=== PATIENT | male | born 1980 | race American Indian/Alaskan Native ===

== ENCOUNTER 2022-04-21 15:39 | Emergency (ER) | payer SELFPAY ==
[2022-04-21 16:24] VITALS: BP 113/66
[2022-04-21] MEDS ORDERED: SULFAMETHOXAZOLE/TRIMETHOPRIM 800/160MG DS TAB PO ONE (16:45)
--- NOTE | 2022-04-21 16:46 | Emergency Department Report ---
Abscess Boil HPI - HPI Chief Complaint: Eye Problems Stated Complaint: OPEN BUMP ON HEAD ABOVE EYE Time Seen by Provider: 04/21/22 16:43 Duration: 5 Days Location: Other Severity: Mild History: Yes Purulent Drainage, No Fever, No Pain, No Numbness, No Foreign Body, No Previous History, No Insect Bite HPI: 42 YO COMES IN WITH BOIL OVER LEFT EYE. CURRENTLY DRAINING PURULENT DRAINAGE. NO TRAUMA. NO HX OF SAME. NO FEVER OR CHILLS. Home Medications: Previous Rx's Medication Instructions Recorded Last Taken Type Sulfamethoxazole/Trimethoprim 1 each PO BID #10 tablet 04/21/22 Unknown Rx [Bactrim DS TAB] Allergies/Adverse Reactions: Allergies Allergy/AdvReac Type Severity Reaction Status Date / Time amoxicillin Allergy Unknown Verified 07/11/17 12:31 ED Review of Systems ROS: Stated complaint: OPEN BUMP ON HEAD ABOVE EYE Other details as noted in HPI Comment: All other systems reviewed and negative ED Past Medical Hx - Past Medical History Previous Medical History?: Yes Additional medical history: Sinusitis - Surgical History Past Surgical History?: Yes Additional Surgical History: sinus surgery - Social History Smoking Status: Never Smoker Substance Use Type: Alcohol - Medications Home Medications: Home Medications Medication Instructions Recorded Confirmed Last Taken Type Sulfamethoxazole/Trimethoprim 1 each PO BID #10 tablet 04/21/22 Unknown Rx [Bactrim DS TAB] ED Abscess Boil Physical Exam - Exam General: Vital signs noted. No distress. Alert and acting appropriately. Front/Back of Body, Lg (Color): 1 - DRAINING BOIL ON UPPER LID OF LEFT EYE Size: 1 cm Exam: Yes Tenderness, Yes Normal Neurologic Exam, Yes Normal Circulation, No Fluctuance, No Surrounding Cellulites/Erythema, No Lymphangitis, No Crepitation, No Heart Murmur I & D Note - I & D Note I & D Note: NONE ED Course Vital Signs 04/21/22 16:23 Temperature 98.9 F Pulse Rate 86 Respiratory 20 Rate Blood Pressure 113/66 [Right] O2 Sat by Pulse 99 Oximetry Critical care attestation.: If time is entered above; I have spent that time in minutes in the direct care of this critically ill patient, excluding procedure time. ED Medical Decision Making - Medical Decision Making OPEN AND DRAINING WOUND CLEANED DC HOME WITH DC PLAN OF CARE INCLUDING DIET, MEDS, ACTIVITY AND FOLLOW UP Vital Signs 04/21/22 16:23 Temperature 98.9 F Pulse Rate 86 Respiratory 20 Rate Blood Pressure 113/66 [Right] O2 Sat by Pulse 99 Oximetry HE VERBALIZES UNDERSTANDING OF PLAN OF CARE - Differential Diagnosis BOIL ED Disposition Clinical Impression: Boil Disposition: 01 HOME / SELF CARE / HOMELESS Is pt being admited?: No Does the pt Need Aspirin: No Condition: Stable Instructions: Skin Abscess Additional Instructions: CONTINUE WARM COMPRESSES MOTRIN OR TYLENOL FOR PAIN MED ORDERED TODAY UNTIL GONE Prescriptions: Sulfamethoxazole/Trimethoprim [Bactrim DS TAB] 1 each PO BID #10 tablet Referrals: CHRISTY WEBBER MD [Staff Physician] - 3-5 Days Forms: Work/School Release Form(ED) Time of Disposition: 16:44
== END 2022-04-21 18:59 | disposition home or self-care (01) ==
LOC: ED 15:39
DX: H00.034 Abscess of left upper eyelid (principal); Z72.89 Other problems related to lifestyle; Z98.890 Other specified postprocedural states
CPT/HCPCS: 99282